=== PATIENT | female | born 1970 | race Caucasian/White ===

== ENCOUNTER 2021-05-11 09:18 | Emergency (ER) | payer OTHER ==
[~2021-05-11] VITALS: Ht 160 cm; Wt 74.4 kg
[2021-05-11 09:18] VITALS: BP_SYST 156
--- NOTE | 2021-05-11 09:18 | NUR ---
BROUGHT BACK TO BED #6 AND TRIAGED, REPORT GIVEN TO VENESSA
--- NOTE | 2021-05-11 09:22 | NUR ---
Patient to ER bed 06 to gown for evaluation. Side rails up.
--- NOTE | 2021-05-11 09:30 | NUR ---
Connected ot to color television console monitor. A&Ox4. 20g IV placed on right AC using aseptic technique with no infiltration noted. Bed in lowest position.
--- NOTE | 2021-05-11 09:30 | NUR ---
Dr. Mcgovern at bedside.
--- NOTE | 2021-05-11 09:44 | NUR ---
Labs drawn and sent to lab.
--- NOTE | 2021-05-11 09:45 | NUR ---
Pt states she cannot urinate at this time. Water given.
[2021-05-11 09:56] LABS: BASOPHILS # (AUTO) 0.3 K/uL (0.0-0.2); BASOPHILS % (AUTO) 3.3 % (0.0-2.0); EOSINOPHILS # (AUTO) 0.2 K/uL (0.0-0.4); EOSINOPHILS % (AUTO) 1.6 % (0.0-4.0); HEMATOCRIT 42.7 % (36-48); HEMOGLOBIN 14.3 g/dL (12.0-16.0); LYMPHOCYTES # (AUTO) 1.4 K/uL (1.0-5.5); LYMPHOCYTES % (AUTO) 13.7 % (20.5-51.5); MEAN CORPUSCULAR HEMOGLOBIN 29 pg (27-31); MEAN CORPUSCULAR HGB CONC 34 % (32-36); MEAN CORPUSCULAR VOLUME 87 fL (79.0-98.0); MONOCYTES # (AUTO) 0.5 K/uL (0.0-1.0); MONOCYTES % (AUTO) 5.3 % (1.7-9.3); NEUTROPHILS # (AUTO) 7.7 K/uL (1.8-7.7); NEUTROPHILS % (AUTO) 76.1 % (40.0-70.0); PLATELET COUNT (AUTO) 293 K/uL (130-430); RED BLOOD CELL COUNT(AUTO) 4.89 MIL/uL (4.2-6.2); RED CELL DISTRIBUTION WIDTH 13.1 % (9.0-15.0); WHITE BLOOD COUNT (AUTO) 10.2 K/uL (4.8-10.8)
[2021-05-11 09:59] LABS: CALCIUM 9.3 mg/dL (8.4-11.0); CREATININE 0.75 mg/dL (0.55-1.30); POTASSIUM 4.2 mmol/L (3.5-5.1)
--- NOTE | 2021-05-11 10:02 | NUR ---
Pt to CT via wheelchair.
[2021-05-11 10:05] LABS: TOTAL BILIRUBIN 0.9 mg/dL (0.0-1.0)
--- NOTE | 2021-05-11 10:08 | NUR ---
Pt back from CT.
--- NOTE | 2021-05-11 10:26 | NUR ---
Pt provided urine sample and was sent to lab.
[2021-05-11 10:28] LABS: BILIRUBIN,URINE NEGATIVE (NEGATIVE); BLOOD, URINE NEGATIVE (NEGATIVE); CLARITY/URINE CLEAR (CLEAR); COLOR,URINE YELLOW (YELLOW); GLUCOSE,URINE NEGATIVE (NEGATIVE); KETONES,URINE NEGATIVE (NEGATIVE); LEUKOCYTE ESTERASE ,URINE NEGATIVE (NEGATIVE); NITRITE, URINE NEGATIVE (NEGATIVE); PROTEIN URINE NEGATIVE (NEGATIVE)
[2021-05-11] MEDS ORDERED: DICY10CA13 PO (10:52)
[2021-05-11] MEDS ORDERED: ONDA-8 TL (10:52)
[2021-05-11 10:57] VITALS: BP_SYST 130
--- NOTE | 2021-05-11 10:58 | NUR ---
Patient given written and verbal discharge instructions and verbalizes understanding. ER MD discussed with patient the results and treatment provided. Patient in stable condition. ID arm band removed. IV catheter removed intact and dressing applied, no active bleeding. Rx of Zofran 4mg and Dicyclomine given. Patient educated on pain management and to follow up with PMD. Pain Scale . Opportunity for questions provided and answered. Medication side effect fact sheet provided.
== END 2021-05-11 10:58 | disposition home or self-care (01) ==
LOC: SED 09:18
DX: R10.33 Periumbilical pain (principal); Z79.899 Other long term (current) drug therapy
CPT/HCPCS: 36415; 76376; 80053; 81003; 83690; 85025; 99284

== ENCOUNTER 2022-06-16 14:03 | Emergency (ER) | payer OTHER ==
[~2022-06-16] VITALS: Ht 160 cm; Wt 74.4 kg
[2022-06-16 14:03] VITALS: BP_SYST 173
[~2022-06-16 14:03] MED LIST: DICY10CA13 PO; ONDA-8 TL
--- NOTE | 2022-06-16 14:03 | NUR ---
BROUGHT BACK TO BED IN HALLWAY VIA WHEELCHAIR, TRIAGED. REPORT GIVEN TO BRENDA
[2022-06-16] MEDS ORDERED: KETOROLAC TROMETHAMINE 60 MG/2 ML VIAL IM ONE (14:30)
--- NOTE | 2022-06-16 14:33 | NUR ---
XRAYS BEING DONE AT BEDSIDE IN HALLWAY, PT TOLERATING THEM WELL
--- NOTE | 2022-06-16 14:35 | NUR ---
ER at bedside examining patient.
[2022-06-16] MEDS ORDERED: HYDR-3917 PO (14:37)
[2022-06-16] MEDS ORDERED: IBUP-1971 PO (14:37)
--- NOTE | 2022-06-16 15:13 | NUR ---
Patient given written and verbal discharge instructions and verbalizes understanding. ER MD discussed with patient the results and treatment provided. Patient in stable condition. ID arm band removed. Opportunity for questions provided and answered. Medication side effect fact sheet provided.
[2022-06-16 15:32] VITALS: BP_SYST 173
== END 2022-06-16 15:13 | disposition home or self-care (01) ==
LOC: SED 14:03
DX: S82.842A Displaced bimalleolar fracture of left lower leg, initial encounter for closed fracture (principal); Z79.899 Other long term (current) drug therapy; V00.111A Fall from in-line roller-skates, initial encounter; Y93.51 Activity, roller skating (inline) and skateboarding; Y92.89 Other specified places as the place of occurrence of the external cause; Y99.8 Other external cause status
CPT/HCPCS: 99284; 29515; 73590; 73610; 96372; J1885